=== PATIENT | female | born 1995 ===

== ENCOUNTER 2021-06-16 02:13 | Emergency (ER) | payer SELFPAY ==
[~2021-06-16] VITALS: Ht 157.5 cm; Wt 49.7 kg
[2021-06-16 02:14] VITALS: BP 161/104
[2021-06-16] MEDS ORDERED: LEVO100T5 PO (02:20)
== END 2021-06-16 03:22 | disposition left against medical advice (07) ==
LOC: M ED 02:13 → EDBD 02:13 → M ED 03:22
DX: Z53.21 Procedure and treatment not carried out due to patient leaving prior to being seen by health care provider (principal)